=== PATIENT | male | born 1970 | race Caucasian/White ===

== ENCOUNTER → 2016-11-06 | Outpatient (CLI) | payer BC ==
[2016-11-06 15:11] LABS: Basophils # (A) 0.1 k/uL (0-0.2); Basophils % (A) 1 %; CH 28.9; CHCM 34.9; Eosinophils # (A) 0.1 k/uL (0-0.7); Eosinophils % (A) 1 %; HCT 46.5 % (39.0-53.0); HDW 3.01; HGB 15.5 gm/dL (13.0-17.5); Luc # (Auto) 0.13; Luc % (Auto) 2; Lymphocytes # (A) 2.3 k/uL (1.0-4.8); Lymphocytes % (A) 25 %; MCH 27.8 pg (25.0-35.0); MCHC 33.4 g/dL (31.0-37.0); MCV 83.3 fL (80.0-100.0); Mean Platelet Volume 7.1; Monocytes # (A) 0.5 k/uL (0-1.0); Monocytes % (A) 5 %; Neutrophils % (A) 67 %; RBC 5.59 m/uL (4.30-5.90); WBC (Perox) 8.47
[2016-11-06 15:24] LABS: ALT 32 U/L (21-72); AST 26 U/L (17-59); Alkaline Phosphatase 75 U/L (38-126); Anion Gap 12 mmol/L; Blood Urea Nitrogen 9 mg/dL (9-20); Calcium 9.5 mg/dL (8.4-10.2); Carbon Dioxide 26 mmol/L (22-30); Chloride 101 mmol/L (98-107); Glucose 87 mg/dL (74-99); Non-African American GFR(MDRD) >60 (>60 ml/min/1.73 sqM); Potassium 4.1 mmol/L (3.5-5.1); Sodium 139 mmol/L (137-145); Total Bilirubin 0.5 mg/dL (0.2-1.3); Total Protein 7.6 g/dL (6.3-8.2)
--- NOTE | 2016-11-06 15:37 | CT ---
EXAMINATION TYPE: CT angio chest DATE OF EXAM: 11/06/2016 COMPARISON: NONE HISTORY: Mid chest pain through to the back for [address] DLP: 1225.2 mGycm. Automated Exposure Control for Dose Reduction was Utilized. CONTRAST: CTA scan of the thorax is performed with IV Contrast, patient injected with 100 mL of Omnipaque 350, pulmonary embolism protocol. MIP Images are created on CT scanner and reviewed. FINDINGS: LUNGS: The lungs are grossly clear, there is no concerning parenchymal mass or nodule identified. T here is no pleural effusion or pneumothorax seen. The tracheobronchial tree is patent. MEDIASTINUM: There is no evidence of intramural hematoma on the unenhanced images. There is no eviden ce of aortic aneurysm as the ascending aorta measures up to 3.2 cm. The sinotubular junction and desc ending thoracic aorta are also within normal limits as are the great vessels. No evidence of dissecti on of the visualized aorta. There are no greater than 1 cm hilar or mediastinal lymph nodes. No car diomegaly or pericardial effusion is seen. OTHER: There is a 6 mm left midpole renal lesion that is too small to accurately characterize. Small gastroesophageal hiatal hernia is noted. Healing rib fractures are seen the lateral margins of ribs 8 and 9 on the right. Mild degenerative changes are appreciated the visualized thoracic spine. IMPRESSION: 1. No evidence of thoracic aortic aneurysm, dissection or intramural hematoma. 2. Healing fractures of the lateral margins of ribs 8 and 9 on the right.
[2016-11-06 15:45] LABS: Creatine Kinase MB 1.6 ng/mL (0.0-2.4); Troponin I <0.012 ng/mL (0.000-0.034)
== END | disposition home or self-care (01) ==
LOC: RADCTMAIN 14:33
PROVIDERS: ATTEND Nurse Practitioner Adult Health
DX: R07.9 Chest pain, unspecified (principal); R93.8 Abnormal findings on diagnostic imaging of other specified body structures; Z87.81 Personal history of (healed) traumatic fracture
CPT/HCPCS: 80053; 82553; 84484; 85025; 71275; 36415; Q9967

== ENCOUNTER → 2016-11-09 | Outpatient (CLI) | payer BC ==
[2016-11-09 18:55] LABS: Amylase 44 U/L (30-110); Cholesterol 195 mg/dL (<200); HDL Cholesterol 42 mg/dL (40-60)
== END ==
LOC: MMGSC 10:15
PROVIDERS: ATTEND Family Medicine
DX: I10 Essential (primary) hypertension (principal); R10.13 Epigastric pain; R07.89 Other chest pain
CPT/HCPCS: 36415; 80061; 82150; 83690

== ENCOUNTER → 2016-11-16 | Outpatient (CLI) | payer BC ==
--- NOTE | 2016-11-16 11:36 | ECHOS ---
DATE OF SERVICE: 11/16/2016 TYPE OF REPORT: STRESS ECHOCARDIOGRAM INDICATION: Chest pain. BASELINE HEART RATE: 83 BASELINE BLOOD PRESSURE: 131/63 MAXIMUM HEART RATE: 156 MAXIMUM BLOOD PRESSURE: 167/65 85% MPHR: 146 100% MPHR: 172 METS: 9.6 MAXIMUM STAGE REACHED: 3 TOTAL EXERCISE TIME: 8:00 Baseline EKG revealed a normal sinus rhythm with nondiagnostic inferior Q- waves. Patient walked on standard Christiano protocol for 8 minutes, achieved a maximum heart rate of 156 beats per minute, well above 85% of predicted maximal. He developed fatigue and shortness of breath, but did not have any angina or arrhythmia. EKG did not reveal any ST segment changes to indicate ischemia. By EKG criteria, this is a negative stress test with fair exercise capacity. Baseline echo images reveal normal wall motion, wall thickening of all segments. At peak exercise, there was good augmentation of wall motion and wall thickening of all segments suggesting that there is no evidence of stress induced ischemia on this study. IMPRESSION: 1. Fair exercise capacity, negative stress test by EKG criteria. 2. Normal stress echocardiogram with fair exercise capacity. DILMA
== END ==
LOC: RADNMMAIN 08:47
PROVIDERS: ATTEND Family Medicine
DX: R10.13 Epigastric pain (principal); R07.9 Chest pain, unspecified
CPT/HCPCS: 93017; 93350

== ENCOUNTER → 2016-11-20 | Outpatient (CLI) | payer BC | END | disposition home or self-care (01) | LOC: MMGSC 15:41 | PROVIDERS: ATTEND Family Medicine | DX: E03.9 Hypothyroidism, unspecified (principal) | CPT/HCPCS: 36415; 84439; 84443 ==

== ENCOUNTER 2017-01-12 07:29 | Day surgery (SDC) | payer BC ==
[2016-12-13 15:07] VITALS: BMI 34.9
[~2017-01-12 07:29] MED LIST: LACTATED RINGERS 1,000 ML IV SCH
[2017-01-12 07:46] VITALS: TEMP 97
[2017-01-12] MEDS ORDERED: LIDOCAINE 1% 20 ML VIAL (10MG/ML) FOR IV START INTRADERMA ONE (07:56)
[2017-01-12] MEDS ORDERED: LIDOCAINE 1% INJ 10MG/ML (20 ML MDV) ONE (08:42)
[2017-01-12] MEDS ORDERED: PROPOFOL 10 MG/ML 20 ML VIAL IV ONE (08:42)
--- NOTE | 2017-01-12 08:46 | P.GSHP ---
History of Present Illness H&P Date: 01/12/17 HPI 46 yrs old male presents with midsternal chest pain. Ct angio negative for dissection. No weight loss or loss of appetite . Has heartburn and nausea ROS Additionally reports: Constitutional: No fever, chills or rigors. No weight loss or loss of appetite. HEENT: No difficulty with hearing, vision and swallowing. Lymphatic: No axillary, inguinal and cervical swellings. Endocrine: No thyroid disorders. Denies history of diabetes. Respiratory: No chest pain, shortness of breath, and cough. No hemoptysis. Cardiovascular: No palpitations, irregular HR Gastrointestinal: Has heartburn. No change in bowel habits. Has nausea, no vomiting. Genitourinary: No increase in urinary frequency or urgency. No hematuria. Musculoskeletal: No back pain, joint stiffness or pain. Neurologic: No history of seizure disorder and headaches. Psychiatric: Denies depression or anxiety . No suicidal ideation. Hematologic: Denies any abnormal mucosal bleeding or easy bruising. Physical Exam Patient is a 46-year-old male. Constitutional: General Appearance: healthy-appearing, well-nourished, and well- developed. Level of Distress: NAD. Ambulation: ambulating normally. Psychiatric: Insight: good judgement. Orientation: to time, place, and person. Head: Head: normocephalic and atraumatic. Eyes: Lids and Conjunctivae: no discharge or pallor and non-injected. Sclerae: non-icteric. ENMT: Oropharynx: moist mucous membranes. Abdomen: Bowel Sounds: normal. Inspection and Palpation: no tenderness or guarding and soft and non-distended. Musculoskeletal:: Motor Strength and Tone: normal and normal tone. Joints, Bones , and Muscles: normal movement of all extremities. Extremities: no cyanosis or edema. Neurologic: Gait and Station: normal gait and station. Cranial Nerves: grossly intact. Assessment / Plan 1. Esophagogastroduodenoscopy with biopsy 2. Informed consent obtained from the patient after explaining the risks, benefits and potential complications of EGD including bleeding and perforation 3. Patient demonstrated understanding of the procedure and agreed to undergo EGD with possible biopsy/polypectomy 1. Epigastric pain R10.13: Epigastric pain 2. Essential hypertension I10: Essential (primary) hypertension HIGH BLOOD PRESSURE: CARE INSTRUCTIONS LEARNING ABOUT HIGH BLOOD PRESSURE Past Medical History Past Medical History: GERD/Reflux, Hypertension, Myocardial Infarction ([place]) Additional Past Medical History / Comment(s): [place] AGE 27 AND 46 Last Myocardial Infarction Date:: 10/2016 History of Any Multi-Drug Resistant Organisms: None Reported Past Surgical History: Orthopedic Surgery, Tonsillectomy Additional Past Surgical History / Comment(s): LT ROTATOR CUFF REPAIR. LT KNEE SCOPE. REPAIR DEVIATED SEPTUM. WISDOM TEETH REMOVED UNDER ANESTHESIA Past Anesthesia/Blood Transfusion Reactions: No Reported Reaction Smoking Status: Never smoker - Past Family History Mother Family Medical History: Cancer Father Family Medical History: Cancer Medications and Allergies Home Medications Medication Instructions Recorded Confirmed Type Escitalopram [Lexapro] 10 mg PO DAILY 01/10/17 01/10/17 History Esomeprazole Magnesium [NexIUM 22.3 mg PO DAILY 01/10/17 01/10/17 History 24Hr] amLODIPine BESYLATE/BENAZEPRIL 1 each PO DAILY 01/10/17 01/10/17 History [Lotrel 5-20 mg Capsule] Allergies Allergy/AdvReac Type Severity Reaction Status Date / Time No Known Allergies Allergy Verified 01/12/17 07:42 Surgical - Exam Vital Signs Temp Pulse Resp BP Pulse Ox 97.0 F L 70 16 125/81 98 01/12/17 07:44 01/12/17 07:44 01/12/17 07:44 01/12/17 07:44 01/12/17 07:44
--- NOTE | 2017-01-12 08:59 | P.OP ---
Date of Procedure: 01/12/17 Preoperative Diagnosis: GERD Obesity BMI 35 Hypertension Postoperative Diagnosis: Hiatal hernia Reflux esophagitis Procedure(s) Performed: EGD with cold biopsy Implants: NA Anesthesia: MAC Surgeon: Elizabet Bernard Estimated Blood Loss (ml): 1 Pathology: other Condition: stable Disposition: PACU Indications for Procedure: 46 years old male presents with mid sternal pain and worsening reflux. He is taking Nexium 20 mg by mouth daily with some symptomatic relief. Informed consent obtained and patient elected to undergo EGD with possible biopsy. Operative Findings: Hillgrade 2 hiatal hernia LA Grade 1 reflux esophagitis Description of Procedure: A timeout was performed to verify the correct patient and correct procedure. Patient was on continuous vitals and pulse ox monitoring throughout the procedure. She was placed in lateral decubitus position and an oral bite block was inserted. A well-lubricated Olympus upper endoscope was passed orally. The esophagus was intubated without difficulty. The vocal cords were visualised and protected at all times. The endoscope was passed beyond the pylorus into the first and second portion of the duodenum. No abnormality was noted in the duodenum mucosa. Two random biopsies were taken from the gastric antrum using cold biopsy forceps. The scope was then retroflexed. Hiatal hernia was noted which is Hill Grade 2. No mass, active ulcer or bleeding stigmata noted within the gastric lumen. The GE junction is measured at 36 cm from the incisors . LA grade 1 reflux esophagitis which was biopsiedx4 using cold bx foeceps. The diaphragmatic impression at 38 cms from incisors.The endoscope was gradually withdrawn. No abnormality identified in the esophagus. Patient tolerated the procedure well and was taken to post anesthesia care unit in stable condition. FINAL DIAGNOSIS: 1. Hill Grade 1 Hiatal hernia 2. Gastroesophageal reflux disease 3. Obesity BMI 35 SPECIMEN: Antral biopsy GE junction bx RECOMMENDATION: 1. Continue PPI 2. Reduce caffeine 3. Robotic hiatal hernia and Fani fundoplication Final Pathologic Diagnosis A. STOMACH, BIOPSY: MILD CHRONIC GASTRITIS. HELICOBACTER IMMUNOPEROXIDASE STAIN IS PERFORMED TO EVALUATE FOR HELICOBACTER ORGANISMS AND IS NEGATIVE (CONTROLS APPROPRIATE). B. GASTROESOPHAGEAL JUNCTION, BIOPSY: SQUAMOGLANDULAR MUCOSA WITH INTESTINAL TYPE GLANDULAR MUCOSA, CHRONIC ESOPHAGITIS WITH RARE EOSINOPHILS, AND CHRONIC INFLAMMATION OF THE GLANDULAR MUCOSA. NEGATIVE FOR DYSPLASIA. Notes The findings identified in part B may represent intestinal metaplasia of the gastric cardia versus Barretts esophagus. Recommend clinical and endoscopic correlation and follow up as indicated
[2017-01-12 09:19] VITALS: BP 120/69; PULSE 68; RESP 18
== END 2017-01-12 09:45 | disposition home or self-care (01) ==
LOC: ORWHC2ENDO 07:29
PROVIDERS: ATTEND Surgery
DX: K29.50 Unspecified chronic gastritis without bleeding (principal); K21.0 Gastro-esophageal reflux disease with esophagitis; K20.0 Eosinophilic esophagitis; K44.9 Diaphragmatic hernia without obstruction or gangrene; E66.9 Obesity, unspecified; Z68.35 Body mass index [BMI] 35.0-35.9, adult; I10 Essential (primary) hypertension; I25.2 Old myocardial infarction; F32.9 Major depressive disorder, single episode, unspecified; Z79.899 Other long term (current) drug therapy
CPT/HCPCS: 88305; 88342; 43239; J2001; J2704

== ENCOUNTER → 2020-08-04 | Outpatient (CLI) | payer BC ==
--- NOTE | 2020-08-04 17:06 | CONS ---
CONSULTATION DATE OF SERVICE: 08/04/2020 This 50-year-old gentleman has been evaluated in the sleep center for possible obstructive sleep apnea-hypopnea syndrome. HISTORY OF PRESENT ILLNESS/SLEEP-WAKE EVALUATION: Patient's usual sleep schedule is from 8 p.m. to 4 a.m. basically 7 days a week. No problems with falling asleep. No TV in bedroom. The patient usually sleeps on the stomach position. At present he sleeps by himself. Previously he had very loud snoring, but that situation improved after tonsillectomy and surgery for nasal septum deviation. [place] Sleepiness Scale today is 2. PAST MEDICAL HISTORY: Hypertension. Coronary artery disease, status post NE three years ago. PAST SURGICAL HISTORY: Surgery for rotator cuff on the left side, right knee meniscus surgical treatment, tonsillectomy, surgery for nasal septum deviation, surgery for hiatal hernia. MEDICATIONS: Toprol-XL 50 mg one and a half tablet a day. SOCIAL HISTORY: Negative for smoking. Alcohol consumption: Occasional. FAMILY HISTORY: Cancer, diabetes, thyroid problems, heart problems. REVIEW OF SYSTEMS: No fevers. No double vision. No recent chest pain. No shortness of breath. No abdominal pain. No bleeding episodes. No blood in the urine. No seizure episodes. Basically negative at the present time. PHYSICAL EXAMINATION: GENERAL: A pleasant gentleman without distress. VITAL SIGNS: BP 133/73, HR 84, RR 15, height 5 feet 8 inches, weight 253.4, temperature 98.0, oxygen saturation at room air 96%. Body mass index 38.4. HEENT: PERRLA, EOMI. Evaluation of oropharynx showed tongue protrudes midline. Moderately low position of soft palate. Mallampati II to III. NECK: Supple. No JVD. Thyroid is not palpable. Neck is wide; 18 inches in circumference. LUNGS: Clear to percussion and to auscultation. Good air exchange. No wheezing or rhonchi. HEART: S1, S2 regular. No murmurs, gallops or rubs. ABDOMEN: Obese. EXTREMITIES: No clubbing or cyanosis. CLAIM TAKER: Awake, alert, and oriented X3. Cranial nerves 2 to 7 intact. There is no fasciculation or atrophy. noted. No focal deficits observed. IMPRESSION: 1. History of snoring, small oropharyngeal air space, large size of the neck; obstructive sleep apnea-hypopnea syndrome. 2. Hypertension. 3. Coronary artery disease, status post myocardial infarction 3 years ago. 4. Status post rotator cuff surgery on the left side. 5. Status post right knee meniscus surgery. 6. Status post tonsillectomy. 7. Status post surgical treatment for nasal septum deviation. PLAN: 1. Home sleep apnea test for checking patient's breathing during sleep. 2. CPAP/BiPAP titration if sleep study confirms obstructive sleep apnea-hypopnea syndrome. 3. Preferable position during sleep on the side. 4. No driving if patient feels any sleepiness. 5. I will see patient for follow up visit to explain results of testing and following plan. Thank you very much for referring this patient for consultation. Sincerely, Sean Lux MD, PhD, FAASM Diplomat of [place] [employer] [place] [employer] Medical Administrative of [facility] [place] MMODL / SABIN: [phone] /
== END ==
LOC: SLEEP 15:51
PROVIDERS: ATTEND Internal Medicine
DX: G47.33 Obstructive sleep apnea (adult) (pediatric) (principal); I10 Essential (primary) hypertension; I25.10 Atherosclerotic heart disease of native coronary artery without angina pectoris; I25.2 Old myocardial infarction; Z98.890 Other specified postprocedural states; Z90.09 Acquired absence of other part of head and neck
CPT/HCPCS: 99211

== ENCOUNTER 2022-08-31 19:29 | Emergency (ER) | payer OTHER, BC ==
[2022-08-31 21:07] LABS: Basophils # (A) 0.1 k/uL (0-0.2); Basophils % (A) 1 %; Eosinophils # (A) 0.1 k/uL (0-0.7); Eosinophils % (A) 1 %; HCT 42.4 % (39.0-53.0); HGB 14.3 gm/dL (13.0-17.5); Lymphocytes # (A) 2.2 k/uL (1.0-4.8); Lymphocytes % (A) 23 %; MCH 28.3 pg (25.0-35.0); MCHC 33.7 g/dL (31.0-37.0); Mean Platelet Volume 6.9; Monocytes # (A) 0.6 k/uL (0-1.0); Monocytes % (A) 7 %; Neutrophils # (A) 6.3 k/uL (1.3-7.7); Neutrophils % (A) 67 %; Platelet Count 227 k/uL (150-450); RBC 5.04 m/uL (4.30-5.90); RDW 13.3 % (11.5-15.5); WBC 9.4 k/uL (3.8-10.6)
[2022-08-31] MEDS ORDERED: ONDANSETRON 4 MG/2 ML VIAL IVP STA (21:09)
[2022-08-31] MEDS ORDERED: MORPHINE SULFATE 4 MG/ML SYRINGE IVP STA (21:09)
[2022-08-31 21:16] LABS: ALT 24 U/L (4-49); AST 29 U/L (17-59); African American GFR (CKD) >90 (>60 ml/min/1.73 sqM); Albumin 4.2 g/dL (3.5-5.0); Alkaline Phosphatase 77 U/L (38-126); Anion Gap 10 mmol/L; Blood Urea Nitrogen 10 mg/dL (9-20); Calcium 9.1 mg/dL (8.4-10.2); Carbon Dioxide 25 mmol/L (22-30); Chloride 101 mmol/L (98-107); Glucose 110 mg/dL (74-99); Non-African American GFR(CKD) >90 (>60 ml/min/1.73 sqM); Sodium 136 mmol/L (137-145); Total Bilirubin 0.6 mg/dL (0.2-1.3)
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
[2022-08-31 22:47] VITALS: BP 132/86; PULSE 86; RESP 16; TEMP 97.9
== END 2022-08-31 22:46 | disposition home or self-care (01) ==
LOC: EC 19:29
DX: R10.9 Unspecified abdominal pain (principal); I10 Essential (primary) hypertension; I25.2 Old myocardial infarction; M19.90 Unspecified osteoarthritis, unspecified site; Z79.899 Other long term (current) drug therapy; V49.40XA Driver injured in collision with unspecified motor vehicles in traffic accident, initial encounter
CPT/HCPCS: 36415; 80053; 85025; 72125; 70450; 71260; 74177; 99284; 96374; 96375; J2270; J2405; Q9967

== ENCOUNTER → 2022-12-13 | Outpatient (CLI) | payer OTHER ==
--- NOTE | 2022-12-13 10:29 | CT ---
EXAMINATION TYPE: CT abdomen pelvis w con CT DLP: 2147.7 mGycm, Automated exposure control for dose reduction was used. DATE OF EXAM: 12/13/2022 8:32 AM COMPARISON: CT abdomen pelvis most recent from 08/31/2022 CLINICAL INDICATION:Male, 52 years old with history of K63.89 OTHER DISEASE OF INTESTINE; follow up t o prior abn CT, colon mass TECHNIQUE: Axial CT of the abdomen and pelvis. Sagittal and coronal reformats were created on a [employer] workstation. Contrast used:100 mL of Isovue 300 with IV Contrast, (none if empty) Oral contrast used: with Oral Contrast (none if empty) FINDINGS: LOWER CHEST: Unremarkable ABDOMEN LIVER: Unremarkable GALLBLADDER AND BILE DUCTS: Unremarkable. PANCREAS: Unremarkable. SPLEEN: Unremarkable. ADRENAL GLANDS: Unremarkable. KIDNEYS AND URETERS: No evidence of hydronephrosis or obstructive renal calculus. The ureters are unr emarkable. Nonobstructive left renal calcification measuring 3 mm. PELVIS BLADDER: Unremarkable REPRODUCTIVE: Unremarkable. ABDOMEN & PELVIS STOMACH AND BOWEL: No evidence of bowel obstruction. Small hiatal hernia. There is infarcted fat ante rior to the sigmoid colon which has improved from prior on 08/31/2022. This correlates with area seen o n prior of nonspecific heterogenous attenuation. PERITONEUM/RETROPERITONEUM: No evidence of pneumoperitoneum or free fluid. VASCULATURE: Mild atherosclerotic calcifications are present throughout the abdominal aorta and its b ranches. No evidence of aortic aneurysm. MUSCULOSKELETAL: No acute osseous abnormalities LYMPH NODES: No gross evidence for lymphadenopathy. SOFT TISSUE/ABDOMINAL WALL: Bilateral fat-containing inguinal hernias. IMPRESSION: 1. Heterogenous appearance into the sigmoid colon is felt to represent an epiploic appendagitis on p rior exam. No definitive suspicious masses. 2. Small hiatal hernia. 3. Fat-containing inguinal hernias bilaterally.
== END | disposition home or self-care (01) ==
LOC: RADCTMAIN 06:44
PROVIDERS: ATTEND Family Medicine
DX: K40.90 Unilateral inguinal hernia, without obstruction or gangrene, not specified as recurrent (principal); K44.9 Diaphragmatic hernia without obstruction or gangrene; K63.89 Other specified diseases of intestine
CPT/HCPCS: 74177; Q9967

== ENCOUNTER 2023-05-30 11:08 | Observation (INO) | payer OTHER, BC ==
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
[2023-05-30 12:06] LABS: Partial Thromboplastin Time 26.1 sec (22.0-30.0); Prothrombin Time 11.3 sec (10.0-12.5)
[2023-05-30 12:07] LABS: Basophils # (A) 0.1 k/uL (0-0.2); Basophils % (A) 1 %; Eosinophils # (A) 0.2 k/uL (0-0.7); Eosinophils % (A) 3 %; HCT 39.5 % (39.0-53.0); HGB 13.4 gm/dL (13.0-17.5); Lymphocytes # (A) 2.1 k/uL (1.0-4.8); Lymphocytes % (A) 32 %; MCHC 33.9 g/dL (31.0-37.0); MCV 82.6 fL (80.0-100.0); Mean Platelet Volume 7.3; Monocytes # (A) 0.4 k/uL (0-1.0); Monocytes % (A) 7 %; Neutrophils # (A) 3.7 k/uL (1.3-7.7); Neutrophils % (A) 55 %; Platelet Count 230 k/uL (150-450); RBC 4.79 m/uL (4.30-5.90); RDW 13.7 % (11.5-15.5); WBC 6.6 k/uL (3.8-10.6)
[2023-05-30 12:09] LABS: ALT 20 U/L (4-49); AST 29 U/L (17-59); African American GFR (CKD) >90 (>60 ml/min/1.73 sqM); Albumin 4.1 g/dL (3.5-5.0); Alkaline Phosphatase 72 U/L (38-126); Anion Gap 6 mmol/L; Blood Urea Nitrogen 11 mg/dL (9-20); Calcium 9.4 mg/dL (8.4-10.2); Carbon Dioxide 26 mmol/L (22-30); Chloride 105 mmol/L (98-107); Glucose 91 mg/dL (74-99); Non-African American GFR(CKD) >90 (>60 ml/min/1.73 sqM); Potassium 4.2 mmol/L (3.5-5.1); Sodium 137 mmol/L (137-145); Total Bilirubin 0.6 mg/dL (0.2-1.3); Total Protein 6.7 g/dL (6.3-8.2)
--- NOTE | 2023-05-30 12:25 | XR ---
EXAMINATION TYPE: XR chest 2V DATE OF EXAM: 05/30/2023 12:03 PM CLINICAL INDICATION:Male, 53 years old with history of Chest Pain; COMPARISON: Chest radiographs from 05/30/2023. TECHNIQUE: XR chest 2V Frontal and lateral views of the chest. FINDINGS: Lungs/Pleura: There is no evidence of pleural effusion, focal consolidation, or pneumothorax. Pulmonary vascularity: Unremarkable. Heart/mediastinum: Cardiomediastinal silhouette is unremarkable. Musculoskeletal: No acute osseous pathology. Left rotator cuff repair changes. IMPRESSION: No acute cardiopulmonary disease/process.
[2023-05-30] MEDS: ASPIRIN 81 MG PO STA (12:52)
[2023-05-30] MEDS ORDERED: NITROGLYCERIN SL TABS 0.4 MG TAB SUBLINGUAL PRN (12:56)
[2023-05-30] MEDS ORDERED: CYCLOBENZAPRINE 10 MG TAB PO PRN (12:58)
[2023-05-30] MEDS ORDERED: IBUPROFEN 600 MG TAB PO PRN (14:37)
[2023-05-30] MEDS: GABAPENTIN 300 MG CAP PO SCH (15:08)
[2023-05-30] MEDS: HYDROcodone/APAP 10-325MG 1 EACH TAB PO SCH (15:08)
--- NOTE | 2023-05-30 15:24 | P.HPIM ---
History of Present Illness H&P Date: 05/30/23 Patient is a 53-year-old male with history of hypertension, dyslipidemia presenting for chest pain. It started about 8 PM yesterday when he was working in his barn. It lasted about 20 minutes. He describes chest pain and heaviness, central, nonradiating, associated with diaphoresis, denies any sh ortness of breath, abdominal pain, nausea, vomiting, urinary or bowel complaints. Denies any recent illness. He denies any recent sick contacts or travel history. He called his neurologist in the morning and was advised to come to the ER. He also noted that he had elevated blood pressure. In the ED, temperature was 98.5, pulse 60, respiratory rate 18, blood pressure 152/96, saturating at 96% on room air. Chest x-ray did not show any acute process. EKG independently interpreted, shows sinus bradycardia. CBC, BMP unremarkable, troponin negative x 1. Cardiology consulted. Patient admitted for chest pain and observation. Pertinent positives and negatives as discussed in HPI, a complete review of systems was performed and all other systems are negative. Patient seen and examined at bedside. Vital signs reviewed General: nontoxic, no distress, appears at stated age Derm: warm, dry Head: atraumatic, normocephalic, symmetric Eyes: EOMI, no lid lag, anicteric sclera, pupils equal round reactive to light ENT: Nose and ears atraumatic Neck: No thyromegaly, supple Mouth: no lip lesion, mucus membranes moist Cardiovascular: S1S2 reg, no murmur, no edema Lungs: clear to auscultation bilateral, no rhonchi, no rales, no wheeze, no accessory muscle use Abdominal: soft, nontender to palpation, no guarding, no appreciable organomegaly Ext: no gross muscle atrophy, muscle strength muscle strength 5 out of 5 in all 4 extremities, no contractures Neuro: CN II-XII grossly intact Psych: Alert, oriented, appropriate affect Assessment/Plan: Active: Chest pain, rule out ACS Hypertension Dyslipidemia -On aspirin 81 daily -Trend troponin Telemetry Cardiology consulted Echocardiogram pending Lipid panel pending Continue home metoprolol 100 mg daily, also start on amlodipine 10 mg daily The patient is admitted with an anticipated less than 2 midnight stay as observation status for evaluation of chest pain. Surrogate decision-maker: Sibling CODE STATUS: Full code DVT prophylaxis: Lovenox Anticipated discharge date: Pending clinical course Anticipated discharge place: Pending clinical course A total of 55 Minutes was spent on the care of this complex patient more than 50% of the time was spent in counseling and care coordination. Past Medical History Past Medical History: GERD/Reflux, Hypertension, Myocardial Infarction (ME), Osteoarthritis (OA), Skin Disorder Additional Past Medical History / Comment(s): ME AGE 27 AND 46. Psoriasis on legs, lesion on right kidney. Last Myocardial Infarction Date:: 10/2016 History of Any Multi-Drug Resistant Organisms: None Reported Past Surgical History: Hernia Repair, Orthopedic Surgery, Tonsillectomy Additional Past Surgical History / Comment(s): LT ROTATOR CUFF REPAIR , LT KNEE SCOPE,REPAIR DEVIATED SEPTUM,WISDOM TEETH REMOVED UNDER ANESTHESIA, hiatal hernia surgery Past Anesthesia/Blood Transfusion Reactions: No Reported Reaction Past Psychological History: No Psychological Hx Reported Smoking Status: Never smoker Past Alcohol Use History: None Reported Past Drug Use History: None Reported - Past Family History Mother Family Medical History: Cancer Father Family Medical History: Cancer Medications and Allergies Home Medications Medication Instructions Recorded Confirmed Type Metoprolol Succinate [Toprol XL] 100 mg PO DAILY 07/04/21 05/30/23 History Aspirin EC [Ecotrin Low Dose] 81 mg PO DAILY 05/30/23 05/30/23 History Cyclobenzaprine [Flexeril] 7.5 mg PO TID PRN 05/30/23 05/30/23 History Gabapentin [Neurontin] 300 mg PO TID 05/30/23 05/30/23 History HYDROcodone/APAP 10-325MG [[place] 1 tab PO Q8H 05/30/23 05/30/23 History 10-325] Naproxen [Naprosyn] 500 mg PO BID 05/30/23 05/30/23 History Allergies Allergy/AdvReac Type Severity Reaction Status Date / Time No Known Allergies Allergy Verified 05/30/23 13:12 Physical Exam Vitals: Vital Signs Temp Pulse Resp BP Pulse Ox 05/30/23 14:20 98.1 F 57 L 17 166/91 97 05/30/23 13:14 59 L 17 157/95 97 05/30/23 12:22 98.0 F 53 L 18 149/92 95 05/30/23 11:10 98.5 F 60 18 152/96 96 Intake and Output 02/28/24 02/28/24 02/28/24 06:59 14:59 22:59 Other: Weight 117.48 kg Results CBC & Chem 7: 05/30/23 11:29 05/30/23 11:29
[2023-05-30] MEDS: amLODIPine 10 MG TAB PO SCH (15:28)
--- NOTE | 2023-05-30 16:53 | CA ---
Transthoracic Echo Report Name: Owen Pérez Age: 53 Gender: M : 1970 Exam Date: 05/30/2023 13:33 Exam Location: [facility] Ht (in): 68 Wt (lb): 259 Ordering Physician: Bora Guidry Attending/Referring Phys: [id number], Brea Incident Engineer Skylar Woodward RCS Procedure CPT: Indications: Chest Pain Cardiac Hx: Technical Quality: Very technically difficult study Contrast 1: Definity Total Dose (mL): 2 Contrast 2: Agitated Saline Total Dose (mL): 10 MEASUREMENTS (Male / Female) Normal Values 2D ECHO LV Diastolic Diameter PLAX 5.3 cm 4.2 - 5.9 / 3.9 - 5.3 cm LV Systolic Diameter PLAX 3.4 cm IVS Diastolic Thickness 1.5 cm 0.6 - 1.0 / 0.6 - 0.9 cm LVPW Diastolic Thickness 1.1 cm 0.6 - 1.0 / 0.6 - 0.9 cm LV Relative Wall Thickness 0.5 RV Internal Dim ED PLAX 3.6 cm LVOT Diameter 2.2 cm Aortic Root Diameter 3.3 cm LV Diastolic Volume MOD BP 100.7 cm??? 67 - 155 / 56 - 104 cm??? LV Systolic Volume MOD BP 39.5 cm??? 22 - 58 / 19 - 49 cm??? LV Ejection Fraction MOD BP 60.7 % >= 55 % LV Cardiac Index MOD BP 1385.8 cm???/min???m??? LV Diastolic Volume MOD 4C 102.5 cm??? LV Systolic Volume MOD 4C 35.7 cm??? LV Ejection Fraction MOD 4C 65.1 % LV Cardiac Index MOD 4C 1512.9 cm???/min???m??? LV Diastolic Length 4C 7.5 cm LV Systolic Length 4C 6.4 cm LV Diastolic Volume MOD 2C 98.4 cm??? LV Systolic Volume MOD 2C 44.3 cm??? LV Ejection Fraction MOD 2C 54.9 % LV Cardiac Index MOD 2C 1224.1 cm???/min???m??? LV Diastolic Length 2C 7.6 cm LV Systolic Length 2C 6.4 cm Ascending Aorta Diameter 3.5 cm DOPPLER AV Peak Velocity 98.0 cm/s AV Peak Gradient 3.8 mmHg AV Mean Velocity 67.0 cm/s AV Mean Gradient 2.0 mmHg AV Velocity Time Integral 25.3 cm LVOT Peak Velocity 87.1 cm/s LVOT Peak Gradient 3.0 mmHg LVOT Velocity Time Integral 22.7 cm LVOT Stroke Volume 87.0 cm??? LVOT Stroke Volume Index 38.1 ml/m??? LVOT Cardiac Index 1970.5 cm???/min???m??? AV Area Cont Eq vti 3.4 cm??? AV Area Cont Eq pk 3.4 cm??? Mitral E Point Velocity 83.1 cm/s Mitral A Point Velocity 76.3 cm/s Mitral E to A Ratio 1.1 MV Deceleration Time 195.6 ms MV E' Velocity 4.7 cm/s Mitral E to MV E' Ratio 17.5 PV Peak Velocity 106.6 cm/s PV Peak Gradient 4.5 mmHg FINDINGS Left Ventricle Left ventricular ejection fraction is estimated at 60-65 %. Moderately increased septal wall thickness. Left ventricular cavity size normal. No obvious regional wall motion abnormalities. Right Ventricle Right ventricle not well visualized. . Right Atrium Normal right atrial size. Left Atrium Normal left atrial size. Mitral Valve Structurally normal mitral valve. No mitral stenosis, regurgitation or prolapse. Aortic Valve Trileaflet aortic valve. No aortic valve stenosis or regurgitation. Tricuspid Valve Structurally normal tricuspid valve. No tricuspid stenosis, regurgitation or prolapse. Pulmonic Valve Pulmonic valve not well visualized. No pulmonic stenosis. Trace pulmonic regurgitation. Pericardium No pericardial effusion. Aorta Normal size aortic root and proximal ascending aorta. CONCLUSIONS Left ventricular systolic function is normal Previewed by: Dr. Roni Joy MD (Electronically Signed) Final Date: 30 May 2023 16:52
[2023-05-30] MEDS: LOSARTAN 25 MG TAB PO SCH (18:55)
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
[2023-05-31] MEDS ORDERED: DOBUTamine DRIP for NUC MED 500 MG in DEXTROSE/WATER 1 250ML.BAG IV PRN (06:00)
[2023-05-31] MEDS: ENOXAPARIN 40 MG/0.4 ML SYRINGE SQ SCH (08:12)
[2023-05-31] MEDS: ASPIRIN 81 MG PO SCH (08:12)
[2023-05-31 08:54] LABS: Chol/HDL Ratio 5.21 Ratio; LDL Cholesterol,Calculated 119.1 mg/dL (0.0-131.0)
[2023-05-31] MEDS ORDERED: ASPIRIN 325 MG TAB PO SCH (09:00)
[2023-05-31] MEDS ORDERED: METOPROLOL SUCCINATE (ER) 100 MG TAB.ER.24H PO SCH (09:00)
[2023-05-31 09:27] VITALS: BP 124/82; PULSE 64; RESP 16; TEMP 98.1
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
[2023-05-31] MEDS ORDERED: DOBUTamine DRIP for NUC MED 500 MG/250 ML BAG IV ONE (11:15)
--- NOTE | 2023-05-31 11:40 | CA ---
Dobutamine Stress Echocardiogram Report Owen Pérez Age: 53 Gender: M : 1970 Exam Date: 05/31/2023 10:46 Exam Location: [facility] Ordering Physician: Roni Joy MD ([id number]) Referring Physician: Rufino KOCH Media Relations Coordinator: CHRISTINA, Technologist: Ht (in): 68 Wt (lb): 260 Procedure CPT: Indication: Chest Pain ICD-9 Codes: Rhythm: Patient History: Chest pain and hypertension Cardiac Medications: Medications in past 24 hours: Contrast: Total Dose (mL): Stress Results Protocol: Peak Dose (???g/kg/min): Duration (min:sec): Atropine:(mg) Target HR: 140 Double Product: 31409 Resting HR: 54 Resting BP: 120 / 72 Peak HR: 252 Peak BP: 126 / 62 Max Predicted HR: 165 153 % Max Predicted HR Stress Summary: BP Response: Reason for Termination: Exceeded target heart rate (85% max predicted) Cardiac Symptoms: Nausea and vomiting ECG Analysis Resting EKG: Normal sinus rhythm normal axis normal intervals Stress EKG: Patient was given intravenous dobutamine as per protocol over 14 minutes achieving 91% of predicted maximal heart rate without chest pain or diagnostic ST segment depression Arrhythmia: The PVCs Echo Analysis Base Echo Analysis: Normal left ventricular size wall motion systolic function Low Echo Anaylsis: Normal Peak Echo Analysis: Normal hyperdynamic response Recovery Echo: Normal MEASUREMENTS (Male/Female) Normal Values CONCLUSIONS This is a negative contrast dobutamine echo Dr. Roni Joy MD (Electronically Signed) Final Date: 31 May 2023 11:39
--- NOTE | 2023-05-31 11:53 | P.DS ---
Providers Date of admission: 05/30/23 12:51 Expected date of discharge: 05/31/23 Attending physician: Senthil Zendeajs MD Consults: 05/30/23 12:56 Consult Physician Urgent Consulting Provider: Cristopher Theodore Consult Reason/Comments: chest pain Do you want consulting provider notified?: Yes Primary care physician: Mal[facility] Course: Discharge Diagnosis: Chest pain GERD Hiatal hernia history Hypertension Hospital Course: 53-year-old male with history of hypertension, dyslipidemia presenting for chest pain. In the ED, temperature was 98.5, pulse 60, respiratory rate 18, blood pressure 152/96, saturating at 96% on room air. Chest x-ray did not show any acute process. EKG independently interpreted, shows sinus bradycardia. CBC, BMP unremarkable, troponin negative x 1. Cardiology consulted. Patient admitted for chest pain and observation. ACS ruled out. Dobutamine stress echo negative for ischemia. Patient to follow-up outpatient with cardiology. He also has a history of hiatal hernia, likely source of chest pain. Also started on pantoprazole 40 daily. In terms of hypertension, 2 antihypertensives added. Patient seen and examined at bedside. Vital signs reviewed and stable. General: Nontoxic, no distress, appears at stated age Derm: Warm, dry Head: Atraumatic, normocephalic, symmetric Eyes: EOMI, no lid lag, anicteric sclera Mouth: No lip lesion, mucus membranes moist Cardiovascular: S1S2 reg, no murmur Lungs: CTA bilateral, no rhonchi, no rales, no accessory muscle use Abdominal: Soft, nontender to palpation, no guarding, no appreciable organomegaly Ext: No gross muscle atrophy, no edema, no contractures Neuro: CN II-XI grossly intact, no focal neuro deficits Psych: Alert, oriented, appropriate affect A total of 33 minutes of time were spent preparing this complex discharge summary. Patient was discharged on 05/31/2023 at 1145. Patient Condition at Discharge: Stable Plan - Discharge Summary New Discharge Prescriptions: New Losartan [Cozaar] 25 mg PO DAILY #90 tab amLODIPine [Norvasc] 10 mg PO DAILY #90 tab Pantoprazole [Protonix] 40 mg PO DAILY #30 tab Continue Metoprolol Succinate [Toprol XL] 100 mg PO DAILY Aspirin EC [Ecotrin Low Dose] 81 mg PO DAILY Gabapentin [Neurontin] 300 mg PO TID Cyclobenzaprine [Flexeril] 7.5 mg PO TID PRN PRN Reason: Muscle Spasm HYDROcodone/APAP 10-325MG [[place] 10-325] 1 tab PO Q8H Discontinued Naproxen [Naprosyn] 500 mg PO BID Discharge Medication List Metoprolol Succinate [Toprol XL] 100 mg PO DAILY 07/04/21 [History] Aspirin EC [Ecotrin Low Dose] 81 mg PO DAILY 05/30/23 [History] Cyclobenzaprine [Flexeril] 7.5 mg PO TID PRN 05/30/23 [History] Gabapentin [Neurontin] 300 mg PO TID 05/30/23 [History] HYDROcodone/APAP 10-325MG [[place] 10-325] 1 tab PO Q8H 05/30/23 [History] Losartan [Cozaar] 25 mg PO DAILY #90 tab 05/31/23 [Rx] Pantoprazole [Protonix] 40 mg PO DAILY #30 tab 05/31/23 [Rx] amLODIPine [Norvasc] 10 mg PO DAILY #90 tab 05/31/23 [Rx] Follow up Appointment(s)/Referral(s): Mlaou Son MD [Primary Care Provider] - 1-2 days Roni Joy MD [STAFF PHYSICIAN] - 1 Week Patient Instructions/Handouts: Hiatal Hernia (DC), Noncardiac Chest Pain (DC) Activity/Diet/Wound Care/Special Instructions: Please see your PCP, and cardiology. Discharge Disposition: HOME SELF-CARE
== END 2023-05-31 13:08 | disposition home or self-care (01) ==
LOC: EC 11:08 → 6NMEDSUR 12:51
PROVIDERS: ADMIT Student in an Organized Health Care Education/Training Program; ATTEND Student in an Organized Health Care Education/Training Program
DX: R07.2 Precordial pain (principal); I10 Essential (primary) hypertension; E78.5 Hyperlipidemia, unspecified; K21.9 Gastro-esophageal reflux disease without esophagitis; G89.29 Other chronic pain; M54.2 Cervicalgia; E66.01 Morbid (severe) obesity due to excess calories; Z68.39 Body mass index [BMI] 39.0-39.9, adult; I25.2 Old myocardial infarction; Z79.82 Long term (current) use of aspirin; Z79.899 Other long term (current) drug therapy
CPT/HCPCS: 96372; 99285; 36415; 93005; 93306; 93351; 85379; 80061; 80053; 83735; 84484; 85025; 85610; 85730; 71046; G0378 ×2; J1650; Q9957 ×2